=== PATIENT | male | born 1945 | race Caucasian/White ===

== ENCOUNTER → 2016-11-24 | Outpatient (CLI) | payer BC ==
[~2016-11-24] MED LIST: ACET-749 PO; CLC100 PO; DTR5 PO; LISI1TAB3 PO; LOVA40TA4 PO
[2016-11-24 13:53] LABS: BLOOD UREA NITROGEN 17 mg/dl (7-18); BUN/CREATININE RATIO 17.5 (10-20); CALCIUM 8.3 mg/dl (8.5-10.1); CARBON DIOXIDE 26 mmol/L (21-32); CHLORIDE 105 mmol/L (98-107); CREATININE 0.96 mg/dl (0.60-1.40); GLUCOSE 91 mg/dl (70-99); POTASSIUM 4.2 mmol/L (3.5-5.1); SODIUM 139 mmol/L (136-145)
[2016-11-24 13:58] LABS: CHOLESTEROL 153 mg/dl (0-200); CHOLESTEROL/HDL RATIO 2.6; HDL CHOLESTEROL 58 mg/dl; LDL CHOLESTEROL CALCULATED 78 mg/dl; PROSTATE SPECIFIC ANTIGEN < 0.010 ng/ml (0.000-4.000); TRIGLYCERIDES 86 mg/dl (0-150); VERY LOW DENSITY LIPOPROT CALC 17 mg/dl
== END | disposition home or self-care (01) ==
LOC: C.LABMFLN 10:21
PROVIDERS: ATTEND Family Medicine
DX: Z00.00 Encounter for general adult medical examination without abnormal findings (principal); I10 Essential (primary) hypertension; E78.00 Pure hypercholesterolemia, unspecified; I67.2 Cerebral atherosclerosis; C61 Malignant neoplasm of prostate

== ENCOUNTER → 2017-04-29 | Outpatient (CLI) | payer BC ==
[2017-04-29 17:57] LABS: URINE APPEARANCE CLEAR (CLEAR); URINE BILIRUBIN NEG (NEG); URINE COLOR YELLOW; URINE NITRITE NEG (NEG); URINE PH 6.5 (4.5-7.5); URINE SPECIFIC GRAVITY 1.026 (1.000-1.030); UROBILINOGEN NEG (NEG)
[2017-04-29 18:08] LABS: MANUAL MICROSCOPIC REQUIRED? NO; REVIEW REQ? NO
== END | disposition home or self-care (01) ==
LOC: C.LABMFLN 15:13
PROVIDERS: ATTEND Family Medicine
DX: K40.90 Unilateral inguinal hernia, without obstruction or gangrene, not specified as recurrent (principal); C61 Malignant neoplasm of prostate

== ENCOUNTER 2017-08-31 05:21 | Day surgery (SDC) | payer BC ==
--- NOTE | 2017-08-18 10:57 | PAT Medication Instructions ---
Service Date Aug 18, 2017. Current Home Medication List Clopidogrel Bisulfate (Plavix), 1 TAB PO QPM Fish Oil (Kerby-3), 1 CAP PO QPM Hyoscyamine Sulfate (Levsin), 0.125 MG PO TID PRN for abdominal cramps Lisinopril (Zestril), 30 MG PO QPM Lovastatin (Mevacor), 80 MG PO HS Medication Instructions For Your Scheduled Surgery - Hold the following medications starting today (08/18): Fish Oil (Kerby-3), 1 CAP PO QPM - Hold the following medications 7 days prior to surgery (per your surgeon's instructions): Clopidogrel Bisulfate (Plavix), 1 TAB PO QPM - Hold the following medications the night before surgery: Lisinopril (Zestril), 30 MG PO QPM - Hold the following medications the morning of surgery: Hyoscyamine Sulfate (Levsin), 0.125 MG PO TID PRN for abdominal cramps - Take the following medications as scheduled the night before surgery: Hyoscyamine Sulfate (Levsin), 0.125 MG PO TID PRN for abdominal cramps (if needed) Lovastatin (Mevacor), 80 MG PO HS NOTHING TO EAT OR DRINK AFTER MIDNIGHT If you have any questions please call us at [phone] or [phone] or [phone]
[2017-08-18 12:27] LABS: BASO % 0.5 %; BASO ABS # 0.03 K/uL (0-0.2); COMPLETE YES; EOS % 2.5 %; HEMATOCRIT 41.2 % (42-52); IG% 0.2 %; LYMPH % 30.6 %; MEAN CELL VOLUME 96.3 fL (80-100); MEAN CORPUSCULAR HEMOGLOBIN 31.3 pg (25-34); MEAN CORPUSCULAR HGB CONC 32.5 g/dl (32-36); MEAN PLATELET VOLUME 11.2 fL (7.4-10.4); MONO % 7.9 %; NEUT % 58.3 %; PLATELET COUNT 192 K/uL (130-400); RED BLOOD COUNT 4.28 M/uL (4.7-6.1); WHITE BLOOD COUNT 5.55 K/uL (4.8-10.8)
[2017-08-18 13:44] LABS: BUN/CREATININE RATIO 22.2 (10-20); CALCIUM 8.6 mg/dl (8.5-10.1); CREATININE 0.87 mg/dl (0.60-1.40); POTASSIUM 4.4 mmol/L (3.5-5.1)
[~2017-08-31] VITALS: Ht 177.8 cm; Wt 94.8 kg
[~2017-08-31 05:21] MED LIST changes: -ACET-749 PO; -CLC100 PO; -DTR5 PO; +HYOS1TAB PO; +OMEG10007 PO; +PLAVIX75 PO
[2017-08-31 05:50] VITALS: BP 160/67; PULSE 48; TEMP 36.8; O2SAT 96; Ht 177.8 cm; Wt 94.8 kg
[2017-08-31] MEDS ORDERED: CEFAZOLIN 2000MG IV PUSH 10 ML IV SCH (06:00)
[2017-08-31] MEDS ORDERED: LACTATED RINGER'S 1000ML 1,000 ML IV SCH ×2 (06:00→09:15)
[2017-08-31] MEDS ORDERED: FENTANYL CITRATE INJ 50 MCG/1 ML 2 ML VIAL ONE ×3 (06:20→09:16)
[2017-08-31] MEDS ORDERED: ROCURONIUM BROMIDE 10 MG/ML 5 ML VIAL IV ONE (06:20)
[2017-08-31] MEDS ORDERED: ONDANSETRON INJ 2 MG/ML 2 ML VIAL ONE (06:20)
[2017-08-31] MEDS ORDERED: NEOSTIGMINE METHYLSULFATE 5 MG/5 ML SYR ONE (06:20)
[2017-08-31] MEDS ORDERED: PROPOFOL IV EMULSION 10 MG/ML 20 ML VIAL IV ONE (06:20)
[2017-08-31] MEDS ORDERED: LIDOCAINE HCL 2% 2 ML VIAL (20MG/ML) ONE (06:20)
[2017-08-31] MEDS ORDERED: MIDAZOLAM HCL 1 MG/ML 2ML VIAL ONE (06:20)
[2017-08-31] MEDS ORDERED: GLYCOPYRROLATE INJ 0.2 MG/ML VIAL ONE ×2 (06:20→07:40)
[2017-08-31] MEDS ORDERED: DEXAMETHASONE SOD INJ 4 MG/ML VIAL ONE (06:20)
[2017-08-31] MEDS ORDERED: BUPIVACAINE 0.5 % 5 MG/1 ML MPF 30ML VIAL ONE (06:30)
--- NOTE | 2017-08-31 07:08 | History & Physical Bridge Note ---
H&P Re-Evaluation Bridge Note: I have examined the patient, reviewed the History & Physical and in the interval since the performance of the History & Physical I have noted the following changes of clinical significance: No changes noted
[2017-08-31] MEDS ORDERED: ATROPINE SULFATE 0.1 MG/ML 5ML SYR IV PRN (08:45)
[2017-08-31] MEDS ORDERED: MEPERIDINE HCL 25 MG/ML CARP IV PRN (08:45)
[2017-08-31] MEDS ORDERED: HYDROmorphone INJ 1 MG/ML SYR IV PRN (08:45)
[2017-08-31] MEDS ORDERED: ONDANSETRON INJ 2 MG/ML 2 ML VIAL IV PRN ×2 (08:45→09:15)
[2017-08-31] MEDS ORDERED: LABETALOL HCL IV 5 MG/ML 20ML IV PRN (08:45)
[2017-08-31] MEDS ORDERED: EpHEDrine SULFATE INJ 50 MG/ML AMP IV PRN (08:45)
--- NOTE | 2017-08-31 08:54 | [facility] Post Operative Brief Note ---
Immediate Operative Summary Operative Date Aug 31, 2017. Pre-Operative Diagnosis Right Inguinal Hernia Post-Operative Diagnosis Same as preop Procedure(s) Performed Open Right Inguinal Hernia Repair with Mesh Surgeon Dr. Lopez Desulfurizer Machine Surgeon(s) Howard Quezada PA-C Estimated Blood Loss 5 ml Findings Large indirect hernia, high ligation of sac, repaired with atrium mesh. Specimens A. Hernia Sac Drains None Anesthesia GETA Complication(s) None Disposition Recovery Room / PACU
--- NOTE | 2017-08-31 08:59 | [facility] Operative Report ---
Operative Report Operative Date Aug 31, 2017. Pre-Operative Diagnosis Right Inguinal Hernia Post-Operative Diagnosis indirect right inguinal hernia Procedure(s) Performed Inguinal hernia repair with mesh Surgeon Dr. Lopez Solar Field Service Technician Surgeon(s) Howard Quezada PA-C Estimated Blood Loss 5 ml Findings Large indirect hernia, high ligation of sac, repaired with atrium mesh. Specimens A. Hernia Sac Drains None Anesthesia GETA Complication(s) None Disposition Recovery Room / PACU Indications 71-year-old male with symptomatic reducible right inguinal hernia, plan for open right inguinal hernia repair with mesh. The risks of the procedure were discussed, all questions were answered, and the patient agreed to proceed with surgery as planned. Description of Procedure The patient was properly identified, consented, and taken to the operating room where he was placed in the supine position. General endotracheal anesthesia was induced. SCDs and a safety belt were placed. Preoperative antibiotics were administered. The patient's groins and abdomen were prepped and draped in the standard sterile fashion. A surgical timeout was performed and all parties were in agreement that this was the correct patient and procedure to be performed and we continued as planned. An oblique incision was made in the right groin and deepened down to subcutaneous tissue with electrocautery. The aponeurosis of the external oblique muscle was cleared of investing tissue. A small incision was made in the aponeurosis of the external oblique muscle with a knife and lengthened under direct visualization with Metzenbaum scissors. Flaps were raised cephalad and caudad on the posterior portion of the external oblique. The ilioinguinal nerve was identified divided. The cord structures were circumferentially dissected and encircled with a [place] drain. A large indirect hernia was noted. The hernia sac was dissected away from the cord structures. The hernia sac was opened, twisted on itself, and suture ligated with 2-0 Vicryl suture, and was reduced back into the abdomen. The hernia sac was excised and sent as specimen. Hemostasis was achieved within the wound. A piece of atrium inguinal hernia mesh was sewn into place using interrupted 0 Nurolon sutures. It was secured to the pubic tubercle medially, the inguinal ligament caudad, and the conjoined tendon cephalad. The internal ring was recreated by securing the tails and could accommodate the tip of the surgeons fifth digit. The wound was irrigated and hemostasis confirmed. Local anesthetic in the form of 0.5% Marcaine was injected along the cord and the incision. The aponeurosis of the external oblique was then closed with a running 3-0 Vicryl suture. The wound was irrigated. Sri's fascia was reapproximated with interrupted 3-0 Vicryl suture. The skin was closed with a running 4-0 Monocryl subcuticular suture, and Dermabond was placed over the incision. The patient was extubated in the operating room and taken to the PACU for recovery without apparent incident. All sponge, instrument, and needle counts were correct at the conclusion of the procedure. The patient tolerated the procedure well. The physician's administrative assistant data entry was essential retraction, exposure, assistance in placing the mesh, and closure. I attest to the content of the Intraoperative Record and any orders documented therein. Any exceptions are noted below.
[2017-08-31] MEDS ORDERED: OXYCODONE/ACETAMINOPHEN 5-325 TAB PO PRN (09:15)
[2017-08-31] MEDS ORDERED: MoRPHine SULFATE 4 MG/ML 1 ML CARP\\VIAL IV PRN (09:15)
[2017-08-31] MEDS: FENTANYL CITRATE INJ 50 MCG/1 ML 2 ML VIAL IV PRN ×2 (09:17→09:22)
[2017-08-31] MEDS ORDERED: OXYC-57 PO (09:17)
--- NOTE | 2017-08-31 09:19 | Discharge Instructions ---
Discharge Instructions Date of Service Aug 31, 2017. Visit Reason for Visit: Right Inguinal Hernia Discharge Discharge Diagnosis / Problem: repair right inguinal hernia Discharge Goals Goal(s): Decrease discomfort Activity Recommendations Activity Limitations: as noted below Lifting Limitations: no more than 10 pounds Shower/Bathe: no limitations (ok to shower) Anesthesia . Post Anesthesia Instructions: If you have had General Anesthesia or IV Sedation: * Do not drive today. * Resume driving when surgeon permits. * Do not make important decisions or sign legal documents today. * Call surgeon for: 1. Temperature elevations greater than 101 degrees F. 2. Uncontrollable pain. 3. Excessive bleeding. 4. Persistent nausea and vomiting. 5. Medication intolerance (nausea, vomiting or rash). * For nausea and vomiting use only clear liquids such as: tea, soda, bouillon until nausea subsides, then gradually increase diet as tolerated. * If you have any concerns or questions, call your surgeon's office. If physician is unavailable and it is an emergency, call 911 or go to the nearest emergency room. . Instructions / Follow-Up Instructions / Follow-Up Dr. Lopez in 1-2 weeks as planned, call [phone] for any questions Restart Plavix tomorrow Ice right groin off and on alternating every 20 minutes until bedtime Diet Recommendations Recommended Home Diet: no limitations Procedures Procedures Performed: Open Right Inguinal Hernia Repair with Mesh Pending Studies Studies pending at discharge: no Medical Emergencies . Who to Call and When: Medical Emergencies: If at any time you feel your situation is an emergency, please call 911 immediately. . Non-Emergent Contact Non-Emergency issues call your: Surgeon Call Non-Emergent contact if: you have a fever, temperature is above 101.5, your pain is not controlled, you have any medication questions . . "Provider Documentation" section prepared by Howard Quezada. .
--- NOTE | 2017-08-31 09:51 | Anesthesiology Progress Note ---
Anesthesia Post Op Note Date & Time Aug 31, 2017 at 09:51 Vital Signs Pain Intensity: 4 Vital Signs Past 12 Hours Date Time Temp Pulse Resp B/P (MAP) Pulse Ox O2 Delivery O2 Flow Rate FiO2 08/31/17 09:40 40 16 111/65 92 Room Air 08/31/17 09:30 42 16 118/61 96 Room Air 08/31/17 09:20 33 16 101/56 92 Room Air 08/31/17 09:10 40 19 121/68 100 Oxymask 10 08/31/17 09:00 47 16 120/65 99 Oxymask 10 08/31/17 08:50 36.7 61 16 155/61 96 Oxymask 10 08/31/17 05:50 36.8 48 18 160/67 (98) 96 Room Air Notes Mental Status: alert / awake / arousable, participated in evaluation Pt Amnestic to Procedure: Yes Nausea / Vomiting: adequately controlled Pain: adequately controlled Airway Patency, RR, SpO2: stable & adequate BP & HR: stable & adequate Hydration State: stable & adequate Anesthetic Complications: no major complications apparent
[2017-08-31 10:00] VITALS: BP 107/46; PULSE 41; TEMP 36.5; O2SAT 95
[2017-08-31 10:30] VITALS: BP 108/49; PULSE 40; O2SAT 95
[2017-08-31] MEDS ORDERED: OXYCODONE/ACETAMINOPHEN 5-325 TAB ONE (10:41)
[2017-08-31 11:09] VITALS: BP 130/68; PULSE 41; TEMP 36.4; O2SAT 97
[2017-08-31 11:29] VITALS: BP 102/43; PULSE 43; O2SAT 98
[2017-08-31 12:05] VITALS: BP 142/77; PULSE 44; TEMP 36; O2SAT 94
== END 2017-08-31 12:20 | disposition home or self-care (01) ==
LOC: C.ACU 05:21
PROVIDERS: ATTEND Surgery
DX: K40.90 Unilateral inguinal hernia, without obstruction or gangrene, not specified as recurrent (principal); I10 Essential (primary) hypertension; C61 Malignant neoplasm of prostate; Z80.0 Family history of malignant neoplasm of digestive organs; Z80.42 Family history of malignant neoplasm of prostate